=== PATIENT | female | born 1935 | race Caucasian/White ===

== ENCOUNTER 2018-02-20 12:54 | Emergency (ER) | payer OTHER ==
[~2018-02-20] VITALS: Ht 170.2 cm; Wt 70.3 kg
[2018-02-20 12:54] VITALS: BP_SYST 136
[~2018-02-20 12:54] MED LIST: ALEN70SO3 PO; BET(AF)80 PO; DILT300C3 PO; WARF7.5T46 PO
[2018-02-20] MEDS ORDERED: CEFAZOLIN 2 GM IVPB PREMIX 50 ML IV ONE (13:30)
[2018-02-20 14:50] VITALS: BP_SYST 134
== END 2018-02-20 14:50 | disposition home or self-care (01) ==
LOC: SED 12:54
DX: L03.115 Cellulitis of right lower limb (principal); I11.0 Hypertensive heart disease with heart failure; I50.9 Heart failure, unspecified; I48.91 Unspecified atrial fibrillation; E11.9 Type 2 diabetes mellitus without complications; Z79.899 Other long term (current) drug therapy
CPT/HCPCS: 96365; 99283; J0690